=== PATIENT | male | born 1980 | race Hispanic/Latino ===

== ENCOUNTER 2016-11-28 07:19 | Emergency (ER) | payer OTHER ==
[~2016-11-28] VITALS: Ht 157.5 cm; Wt 70.5 kg
[2016-11-28 07:36] VITALS: BP 128/81; PULSE 65; RESP 10; O2SAT 98
--- NOTE | 2016-11-28 08:01 | ED.REPORT ---
HPI-Trauma Minor / Fall Date of Service Nov 28, 2016 ED Provider: Dr. Valverde A 36 year old male presents in - [facility] to ED via EMS complaining of pain concentrated in the left side of his neck onset earlier today when Pt fell 10 ft. from emergency exit platform at patient's workplace. Per brother, Pt hit his head, back and elbow. Pt reports loosing consciousness at time of fall. He reports pain on left side of neck. Associated symptoms include mild headache, and sore right elbow. He denies any past medical conditions and does not have a PCP. He denies any vomiting or nausea, or soreness in right knee. Nursing Notes Stated Complaint: 10 FT FALL Chief Complaint: Multiple Trauma/Fall Nursing Notes Reviewed: Yes Allergies: Coded Allergies: ibuprofen (Unverified Allergy, Unknown, 03/09/10) General Time Seen by MD: 08:00 Chief Complaint Fall (Fall from 10ft.) Hx Obtained From: Patient, Other family... (brother) Arrived By: Ambulance Onset Occurred: Just prior to arrival Symptom Duration: Since onset Caused by: Fall from height... (6-10 feet) Location: Neck (Left side of neck.) Severity: Current: Moderate Severity: Maximum: Moderate Recent Healthcare: No recent doctor visit Similar Sx Previous: No Risk Factors Head CT Imaging Inclusion Criteria: >/= 16 yo age GCS of 14 OR 15 Non Pentrating Injury Presentation w/in [address] Indicated For: WITH Loss of ConciousnessNo >/= 60 yrs Age, No Coagulopathy, No ETOH/Drug Intoxication, No Focal Neuro Deficit, No GCS <[address] for: Fall > 3ft.No Severe Headache, No Vomiting RF Statements: Risk factors reviewed Past Medical History Past Medical History No pertinent medical history. Ambulatory Status Independent Review of Systems Complete sys rev & neg: except as marked. Physical Exam Physical Exam Notes: Initial Vital Signs Vital Signs (First) Date Time Temp Pulse Resp B/P Pulse Ox O2 Delivery O2 Flow Rate FiO2 11/28/16 07:36 36.9 65 10 128/81 98 Room Air Initial VS: Reviewed General/Constitutional: Awake, Alert Nexus is negative. Neck: Atraumatic, Supple, No midline vertebral tend Spine is nontender Head / Eyes: Atraumatic, Normocephalic, PERRL, EOMI No severe headache. ENT: Atraumatic, Airway patent, Mucous membranes moist Respiratory / Chest: Atraumatic, Breath sounds NL, Breath sounds = bilat, No respiratory distress, No rales, No rhonchi, No wheezing Cardiovascular: Heart rate NL, Regular rhythm, Heart sounds NL, No gallop, No murmurs, No rubs Abdomen: Atraumatic, Soft, Non-tender, No guarding, No rebound No severe vomiting. Back: Atraumatic, Full range of motion, Non-tender (Spine is non-tender) Upper Extremity / MS: Atraumatic Right Elbow: Positive: Tenderness present... (Tender over right olecranon) Neurovascularly intact Distally Lower Extremity / Pelvis / MS: Inspection NL Trauma / Burn / Environmental: Positive: Abrasion (Deep abrasion to right garrett. ) Skin: Atraumatic, Color NL, No rash, Warm, Dry Neurologic: Oriented X3, Speech NL, No sensory deficits Re-Eval/Medical Decision Source of Hx: Old records Re-Evaluation/Progress : Time of Eval: 09:28 Re-Evaluation/Progress Note: Rechecked patient and explained plan to give tetanus shot. Explained that ice and ibuprofen will help pain. Explained leg and elbow look normal besides garrett abrasion.By wednesday, he should be good to go to work. Return to ED warnings given for severe headache or vomiting. Counseled Regarding: Diagnosis, When/why to return to ED Discharge & Departure Impression: Primary Impression: Contusion Encounter type: initial encounter Contusion area: lower leg Laterality: right Qualified Code: S80.11XA - Contusion of right lower leg, initial encounter Additional Impression: Abrasion Disposition: Home Patient Instructions: Acute Wound Care (ED), Contusions in Adults (ED), Minor Head Injury (ED) Additional Instructions: Emergency Department evaluation included interviewed, examination, x-rays of elbow and the leg. No serious bony injury is identified, examination does not suggest serious head injury. May use ibuprofen as needed for pain, 600 mg 3-4 times a day. Ice to sore areas, keep ice wrapped in a cloth. Apply antibiotic ointment to the leg wound daily and keep covered. Okay to return to work on Wednesday. Tetanus booster given today, good for 10 years. Follow up with primary care for recheck in about 5 days. Scribe Attestation Portions of this note were transcribed by Keyon Henriquez and Jessy Doran. I, Dr. Valverde personally performed the history, physical exam and medical decision- making; I reviewed and confirmed the accuracy of the information in the transcribed note. Signed by: Keyon Henriquez and Jessy Doran, [place], 2016 and [id number]. Bob Valverde MD Nov 28, 2016 08:01 Keyon Henriquez Nov 28, 2016 08:05
--- NOTE | 2016-11-28 09:09 | DRSVH ---
PROCEDURE: X-RAY RIGHT ELBOW COMPLETE, MINIMUM THREE VIEWS ([id number]) INDICATIONS: fall TECHNIQUE: 3 views of the elbow were acquired. COMPARISON: None. FINDINGS: Bones: No fractures or dislocations. No suspicious bony lesions. Soft tissues: No elbow joint effusion. No suspicious soft tissue calcifications. IMPRESSION: No trauma found. Dictated by: Krzysztof Danielle M.D. on 11/28/2016 at 9:08 Approved by: Krzysztof Danielle M.D. on 11/28/2016 at 9:09
--- NOTE | 2016-11-28 09:09 | DRSVH ---
PROCEDURE: X-RAY RIGHT TIBIA/FIBULA, TWO VIEWS ([id number]) INDICATIONS: fall TECHNIQUE: 2 views of the tibia and fibula were acquired. COMPARISON: None. FINDINGS: Bones: No fractures or dislocations. No suspicious bony lesions. Soft tissues: No suspicious soft tissue calcifications or masses. IMPRESSION: No trauma found. Dictated by: Krzysztof Danielle M.D. on 11/28/2016 at 9:09 Approved by: Krzysztof Danielle M.D. on 11/28/2016 at 9:09
[2016-11-28] MEDS ORDERED: TdaP Vaccine 0.5 mL Inj IM ONE (09:30)
[2016-11-28] MEDS ORDERED: Bacitracin Ointment Packet TOPICAL ONE (09:30)
[2016-11-28 09:53] VITALS: BP 128/81; PULSE 65; RESP 10; O2SAT 98
== END 2016-11-28 09:58 | disposition home or self-care (01) ==
LOC: EDUNIT# 07:19 → EDSEX 07:19 → SED 07:19 → EDBD 07:19 → SED 09:58
DX: S80.11XA Contusion of right lower leg, initial encounter (principal); S80.811A Abrasion, right lower leg, initial encounter; S59.901A Unspecified injury of right elbow, initial encounter; S09.90XA Unspecified injury of head, initial encounter; W17.89XA Other fall from one level to another, initial encounter; Y92.238 Other place in hospital as the place of occurrence of the external cause; Y93.89 Activity, other specified; Y99.0 Civilian activity done for income or pay; Z23 Encounter for immunization; Z88.6 Allergy status to analgesic agent